=== PATIENT | female | born 1990 | race Caucasian/White ===

== ENCOUNTER 2021-10-02 11:41 | Inpatient (IN) | payer OTHER ==
[~2021-10-02] VITALS: Ht 160 cm; Wt 72.6 kg
[2021-10-05] MEDS ORDERED: ACETAMINOPHEN-1 EAC2 PO (10:57)
== END 2021-10-05 11:09 | disposition home or self-care (01) | DRG 743 ==
LOC: ER 11:41 → O/R 15:20 → OB/GYN 15:20 → SURG 15:20 → O/R 15:28 → OB/GYN 20:21
PROVIDERS: ADMIT Obstetrics & Gynecology; ATTEND Obstetrics & Gynecology
PROC: 0UT00ZZ Resection of Right Ovary, Open Approach (ICD-10-PCS; 2021-10-02)
PROC: 0UT50ZZ Resection of Right Fallopian Tube, Open Approach (ICD-10-PCS; principal; 2021-10-02 15:15)
DX: D27.0 Benign neoplasm of right ovary (principal); Z20.822 Contact with and (suspected) exposure to COVID-19